=== PATIENT | male | born 1975 | race Caucasian/White ===

== ENCOUNTER 2019-03-27 13:02 | Emergency (ER) | payer MEDICAID ==
--- NOTE | 2019-03-27 14:07 | C.PDOC ---
History Of Present Illness Patient is a 44 year old male, with a PMHx of HLD, who presents to the ED c/o intermittent pain in bilateral wrists, right bottom of the foot, and left abdomen that has been present for the past 8 days. Patient went to see Dr.Mary Han for a complaint of left flank pain and had bloodwork and a CT performed that showed borderline hepatosplenomegaly, left adrenal gland fullness, and no renal or bladder calculus was noted. Patient's bloodwork which included a normal CBC and a normal CMP was noted to have low Vitamin D. Patient was prescribed Meloxicam, a Vitamin D cup 1.25mg, and Diclofenac Sodium gel and instructed to come back in 3 weeks, but patient has taken the medications for 2 days without relief and presented to the ED. He denies any injury. Time Seen by Provider: 03/27/19 13:38 Chief Complaint (Nursing): Medical Clearance History Per: Patient History/Exam Limitations: no limitations Onset/Duration Of Symptoms: Days (8) Current Symptoms Are (Timing): Still Present Recent travel outside of the [place]: No Additional History Per: Patient Past Medical History Reviewed: Historical Data, Nursing Documentation, Vital Signs Vital Signs: Last Vital Signs Temp 98.4 F 03/27/19 13:14 Pulse Resp 20 03/27/19 13:14 BP Pulse Ox 100 03/27/19 13:14 Primary Care Provider: Non [facility] Provider, - Medical History PMH: Hyperlipidemia Surgical History: No Surg Hx Family History: States: No Known Family Hx - Social History Hx Alcohol Use: No Hx Substance Use: No - Immunization History Hx Tetanus Toxoid Vaccination: No Hx Influenza Vaccination: No Hx Pneumococcal Vaccination: No Review Of Systems Gastrointestinal: Positive for: Abdominal Pain (left abdomen) Musculoskeletal: Positive for: Hand Pain (bilateral wrists), Foot Pain (right foot) Physical Exam - Physical Exam Appears: Non-toxic, No Acute Distress, Other (softspoken with flat affect) Head: Atraumatic, Normacephalic Cardiovascular: Rhythm Regular, No Murmur Respiratory: No Rales, No Rhonchi, No Wheezing Gastrointestinal/Abdominal: Soft, No Tenderness Back: No CVA Tenderness Extremity: Normal ROM, No Tenderness (bilateral wrists or right foot), Capillary Refill (less than 2 seconds) Neurological/Psych: Oriented x3 ED Course And Treatment O2 Sat by Pulse Oximetry: 100 (on RA) Pulse Ox Interpretation: Normal Medical Decision Making Medical Decision Making: Attempted to contact Dr.Mary Han's cellphone which went straight to voicemail and office 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 Disposition - Disposition Referrals: Radha Han MD [Staff Provider] - Disposition: HOME/ ROUTINE Disposition Time: 15:50 Condition: STABLE Prescriptions: traMADol [Ultram] 50 mg PO TID #12 tab Forms: [employer] (Swedish), General Discharge Instructions - Clinical Impression Clinical Impression: Bilateral wrist pain - Scribe Statement The provider has reviewed the documentation as recorded by the Scribe Aubrie Dennis All medical record entries made by the Scribe were at my direction and personally dictated by me. I have reviewed the chart and agree that the record accurately reflects my personal performance of the history, physical exam, medical decision making, and the department course for this patient. I have also personally directed, reviewed, and agree with the discharge instructions and disposition.
--- NOTE | 2019-03-27 14:09 | C.PDOC ---
Time Seen by Provider: 03/27/19 13:38 Chief Complaint (Nursing): Medical Clearance Past Medical History Vital Signs: Last Vital Signs Temp 98.4 F 03/27/19 13:14 Pulse Resp 20 03/27/19 13:14 BP Pulse Ox 100 03/27/19 13:14 Primary Care Provider: Non [facility] Provider, - Social History Hx Alcohol Use: No Hx Substance Use: No - Immunization History Hx Tetanus Toxoid Vaccination: No Hx Influenza Vaccination: No Hx Pneumococcal Vaccination: No ED Course And Treatment O2 Sat by Pulse Oximetry: 100 Disposition - Disposition
[2019-03-27 16:15] VITALS: BP 101/66; PULSE 68; RESP 18; TEMP 98.7; O2SAT 99
== END 2019-03-27 16:20 | disposition home or self-care (01) ==
LOC: C.ER 13:02
DX: M25.532 Pain in left wrist (principal); M25.531 Pain in right wrist